=== PATIENT | female | born 1990 | race Hispanic/Latino ===

== ENCOUNTER 2018-10-17 21:24 | Emergency (ER) | payer MEDICAID ==
[2018-10-17 22:22] VITALS: O2SAT 97
--- NOTE | 2018-10-17 23:46 | ERPHSYRPT ---
- History of Present Illness Time Seen by Provider: 10/17/18 23:35 Source: patient Exam Limitations: no limitations Patient Subjective Stated Complaint: PT C/O 3 DAYS OF YELLOW VAGINAL DC, ITCHING , AND ODOR. ET MILD PELVIC CRAMPING. Triage Nursing Assessment: PINK/WARM/DRY, RESP EASY, A&OX4, STEADY GAIT, NO DISTRESS NOTED. Physician History: 28-year-old white female previously healthy arrives with complaint of vaginal discharge itching some lower abdominal cramping symptoms for 2-3 days. Past medical history is negative. Past surgical history tonsillectomy and adenoidectomy, D&C. Timing/Duration: day(s) (2-3 days) Severity: mild Associated Symptoms: abdominal pain (suprapubic cramping), No nausea, No vomiting, No heartburn, No diaphoresis, No cough, No chills, No chest pain, No fever, No headaches, No loss of appetite, No malaise, No rash, No syncope, No seizure, No weakness Allergies/Adverse Reactions: No Known Drug Allergies Allergy (Unverified 10/17/18 22:47) Home Medications: No Reportable Medications [No Reported Medications] 10/17/18 [History] Hx Tetanus, Diphtheria Vaccination/Date Given: Yes Hx Influenza Vaccination/Date Given: No Hx Pneumococcal Vaccination/Date Given: No Immunizations Up to Date: Yes - Review of Systems Constitutional: No Fever, No Chills Eyes: No Symptoms Ears, Nose, & Throat: No Symptoms Respiratory: No Cough, No Dyspnea Cardiac: No Chest Pain, No Edema, No Syncope Abdominal/Gastrointestinal: Abdominal Pain (suprapubic cramping), No Nausea, No Vomiting, No Diarrhea, No Constipation, No Hematemesis, No Hematochezia, No Melena, No Dysphagia, No Appetite Changes Genitourinary Symptoms: Dysuria, Vaginal Discharge, No Frequency, No Hematuria, No Hesitancy Musculoskeletal: No Symptoms Skin: No Rash Neurological: No Dizziness, No Focal Weakness, No Sensory Changes Psychological: No Symptoms Endocrine: No Symptoms All Other Systems: Reviewed and Negative - Past Medical History Pertinent Past Medical History: No - Past Surgical History Past Surgical History: Yes Female Surgical History: Dilation & Curettage - Social History Smoking Status: Current every day smoker Exposure to second hand smoke: Yes Drug Use: none Patient Lives Alone: No - Female History Hx Now: No - Nursing Vital Signs Nursing Vital Signs: Initial Vital Signs Temperature 98.7 F 10/17/18 22:17 Pulse Rate 76 10/17/18 22:17 Respiratory Rate 16 10/17/18 22:17 Blood Pressure 107/61 10/17/18 22:17 O2 Sat by Pulse Oximetry 97 10/17/18 22:17 Pain Scale Pain Intensity 3 - Physical Exam General Appearance: no apparent distress, alert Eye Exam: PERRL/EOMI, eyes nml inspection Ears, Nose, Throat Exam: normal ENT inspection, TMs normal, pharynx normal, moist mucous membranes Neck Exam: normal inspection, non-tender, supple, full range of motion Respiratory Exam: normal breath sounds, lungs clear, No respiratory distress Cardiovascular Exam: regular rate/rhythm, normal heart sounds, normal peripheral pulses Gastrointestinal/Abdomen Exam: soft, normal bowel sounds, No tenderness, No mass Back Exam: normal inspection, normal range of motion, No CVA tenderness, No vertebral tenderness Extremity Exam: normal inspection, normal range of motion, pelvis stable Neurologic Exam: alert, oriented x 3, cooperative, 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0-10.5) K/mm3 RBC (4.1-5.4) M/mm3 Hgb (12.0-16.0) gm/dl Hct (35-47) % MCV (78-100) fl MCH (26-32) pg MCHC (32-36) g/dl RDW (11.5-14.0) % Plt Count (150-450) K/mm3 MPV (6-9.5) fl Gran % (36.0-66.0) % Eos # (Auto) (0-0.5) Absolute Lymphs (auto) (1.0-4.6) Absolute Monos (auto) (0.0-1.3) Lymphocytes % (24.0-44.0) % Monocytes % (0.0-12.0) % Eosinophils % (0.00-5.0) % Basophils % (0.0-0.4) % Absolute Granulocytes (1.4-6.9) Basophils # (0-0.4) Sodium 139 (137-145) mmol/L Potassium 4.0 (3.5-5.1) mmol/L Chloride 104 (98-107) mmol/L Carbon Dioxide 27 (22-30) mmol/L Anion Gap 11.9 (5-15) MEQ/L BUN 17 (7-17) mg/dL Creatinine 0.65 (0.52-1.04) mg/dL Estimated GFR > 60.0 ML/MIN Glucose 84 (74-106) mg/dL Calcium 9.3 (8.4-10.2) mg/dL Serum , Qual NEGATIVE (Negative) Urine Color YELLOW (YELLOW) Urine Appearance SLIGHTLY CLOUDY (CLEAR) Urine pH 6.0 (5-6) Ur Specific [place] 1.017 (1.005-1.025) Urine Protein NEGATIVE (Negative) Urine Ketones NEGATIVE (NEGATIVE) Urine Blood NEGATIVE (0-5) Wallace/ul Urine Nitrite NEGATIVE (NEGATIVE) Urine Bilirubin NEGATIVE (NEGATIVE) Urine Urobilinogen NEGATIVE (0-1) mg/dL Ur Leukocyte Esterase NEGATIVE (NEGATIVE) Urine WBC (Auto) 0-2 (0-5) /HPF Urine RBC (Auto) NONE (0-2) /HPF U Epithel Cells (Auto) RARE (FEW) /HPF Urine Bacteria (Auto) NONE SEEN (NEGATIVE) /HPF Unidentified Crystals 2-5 (NEGATIVE) /HPF Amorphous Crystals MODERATE (NEGATIVE) /HPF Urine Mucus (Auto) SLIGHT (NEGATIVE) /HPF Urine Culture Reflexed NO (NO) Urine Glucose NEGATIVE (NEGATIVE) mg/dL 10/17/18 Range/Units 00:24 WBC 9.8 (4.0-10.5) K/mm3 RBC 4.37 (4.1-5.4) M/mm3 Hgb 13.2 (12.0-16.0) gm/dl Hct 39.4 (35-47) % MCV 90.2 (78-100) fl MCH 30.2 (26-32) pg MCHC 33.5 (32-36) g/dl RDW 12.2 (11.5-14.0) % Plt Count 225 (150-450) K/mm3 MPV 8.8 (6-9.5) fl Gran % 56.1 (36.0-66.0) % Eos # (Auto) 0.15 (0-0.5) Absolute Lymphs (auto) 3.46 (1.0-4.6) Absolute Monos (auto) 0.68 (0.0-1.3) Lymphocytes % 35.2 (24.0-44.0) % Monocytes % 6.9 (0.0-12.0) % Eosinophils % 1.5 (0.00-5.0) % Basophils % 0.3 (0.0-0.4) % Absolute Granulocytes 5.50 (1.4-6.9) Basophils # 0.03 (0-0.4) Sodium (137-145) mmol/L Potassium (3.5-5.1) mmol/L Chloride (98-107) mmol/L Carbon Dioxide (22-30) mmol/L Anion Gap (5-15) MEQ/L BUN (7-17) mg/dL Creatinine (0.52-1.04) mg/dL Estimated GFR ML/MIN Glucose (74-106) mg/dL Calcium (8.4-10.2) mg/dL Serum , Qual (Negative) Urine Color (YELLOW) Urine Appearance (CLEAR) Urine pH (5-6) Ur Specific [place] (1.005-1.025) Urine Protein (Negative) Urine Ketones (NEGATIVE) Urine Blood (0-5) Wallace/ul Urine Nitrite (NEGATIVE) Urine Bilirubin (NEGATIVE) Urine Urobilinogen (0-1) mg/dL Ur Leukocyte Esterase (NEGATIVE) Urine WBC (Auto) (0-5) /HPF Urine RBC (Auto) (0-2) /HPF U Epithel Cells (Auto) (FEW) /HPF Urine Bacteria (Auto) (NEGATIVE) /HPF Unidentified Crystals (NEGATIVE) /HPF Amorphous Crystals (NEGATIVE) /HPF Urine Mucus (Auto) (NEGATIVE) /HPF Urine Culture Reflexed (NO) Urine Glucose (NEGATIVE) mg/dL - Progress Progress: improved Progress Note: 10/18/18 01:48 Arrives with complaint of lower vaginal discharge also states she's had some abdominal cramping. Urinalysis is negative she is refuses pelvic examination. I have gone ahead and asked the lab to change her GC chlamydia to urine we'll discharge patient at this time and follow-up with either of these are positive. - Departure Departure Disposition: Home Clinical Impression: Vaginal discharge Condition: Fair Critical Care Time: No Referrals: DOCTOR,NO FAMILY [Primary Care Provider] - Additional Instructions: Return home. Follow-up with your family doctor. Return for acute distress or for severe symptoms.
[2018-10-18 00:27] LABS: BASOPHIL % 0.3 % (0.0-0.4); Basophil (Absolute #) 0.03 (0-0.4); Eosinophil % 1.5 % (0.00-5.0); Eosinophil (Absolute #) 0.15 (0-0.5); Granulocytes % 56.1 % (36.0-66.0); Hematocrit 39.4 % (35-47); Hemoglobin 13.2 gm/dl (12.0-16.0); Lymphocyte (Absolute #) 3.46 (1.0-4.6); Lymphocytes % 35.2 % (24.0-44.0); Mean Cell Volume 90.2 fl (78-100); Mean Corpuscular Hemoglobin 30.2 pg (26-32); Mean Corpuscular Hgb Concent. 33.5 g/dl (32-36); Mean Platelet Volume 8.8 fl (6-9.5); Monocyte (Absolute #) 0.68 (0.0-1.3); Monocytes % 6.9 % (0.0-12.0); Platelet Count 225 K/mm3 (150-450); Red Blood Count 4.37 M/mm3 (4.1-5.4); Red Cell Distribution Width 12.2 % (11.5-14.0); White Blood Count 9.8 K/mm3 (4.0-10.5)
[2018-10-18 00:39] LABS: ANION GAP 11.9 MEQ/L (5-15); BLOOD UREA NITROGEN 17 mg/dL (7-17); CHLORIDE 104 mmol/L (98-107); Calcium 9.3 mg/dL (8.4-10.2); Carbon Dioxide 27 mmol/L (22-30); Creatinine 1 0.65 mg/dL (0.52-1.04); Glucose 84 mg/dL (74-106); SODIUM 139 mmol/L (137-145)
[2018-10-18 01:31] LABS: Amourphous Crystal MODERATE /HPF (NEGATIVE); Appearance SLIGHTLY CLOUDY (CLEAR); Bilirubin NEGATIVE (NEGATIVE); Blood NEGATIVE Ery/ul (0-5); Epithelial Cells RARE /HPF (FEW); Glucose NEGATIVE (NEGATIVE); Ketones NEGATIVE (NEGATIVE); Leukocyte Esterase NEGATIVE (NEGATIVE); Mucus SLIGHT /HPF (NEGATIVE); Nitrite NEGATIVE (NEGATIVE); Protein,Urine Dip NEGATIVE (Negative); Specific Gravity 1.017 (1.005-1.025); Urobilinogen NEGATIVE mg/dL (0-1); WBC 0-2 /HPF (0-5)
[2018-10-18 01:33] LABS: Bacteria NONE SEEN /HPF (NEGATIVE)
[2018-10-18 02:01] VITALS: BP 104/53; PULSE 72
[2018-10-18 03:55] LABS: CHLAMYDIA URINE NEGATIVE (NEGATIVE); GC URINE NEGATIVE (NEGATIVE)
== END 2018-10-18 02:21 | disposition home or self-care (01) ==
LOC: ED 21:24
DX: N89.8 Other specified noninflammatory disorders of vagina (principal); R10.30 Lower abdominal pain, unspecified; L29.9 Pruritus, unspecified
CPT/HCPCS: 36415; 80048; 81001; 81025; 85025; 87491; 87591; 99283

== ENCOUNTER 2019-01-22 00:04 | Emergency (ER) | payer OTHER ==
[2019-01-22 00:31] VITALS: BP 115/72; PULSE 100; O2SAT 100
--- NOTE | 2019-01-22 00:42 | ERPHSYRPT ---
- History of Present Illness Historian: patient Exam Limitations: no limitations Patient Subjective Stated Complaint: pt is alert and oriented. pt is ambulatory with a steady gait. pt comes in with c/o bright red blood after attempting going to have a bm. pt states she is unable to have a BM. pt silvina hx of hemrrhoids. pt states that she dropped a full bottle of liquor on her left foot at work and that he big toe is now sore. Triage Nursing Assessment: see above Physician History: Pt is a 28 y/o female that presented to the ED, after having rectal bleed from straining in the BR. Pt stated, she had about 3 days with no BM, and she was trying to push in the BR, and she eventualy had some BM and saw blood in the BM. Pt also stated, she dropped a bottle on her foot, and she has some pain. Pt denies N/V. No abdominal cramp or pain. She is constipated still, and is uncomfortable. Timing/Duration: today Activities at Onset: none Quality: fullness Abdominal Pain Onset Location: generalized abdomen Pain Radiation: no radiation Severity of Pain-Max: none Severity of Pain-Current: none Modifying Factors: Improves With: nothing Associated Symptoms: denies symptoms Previous symptoms: no prior history Allergies/Adverse Reactions: No Known Drug Allergies Allergy (Unverified 10/17/18 22:47) Home Medications: No Reportable Medications [No Reported Medications] 10/17/18 [History] Hx Tetanus, Diphtheria Vaccination/Date Given: Yes Hx Influenza Vaccination/Date Given: No Hx Pneumococcal Vaccination/Date Given: No Immunizations Up to Date: Yes - Review of Systems Constitutional: No Fever, No Chills Eyes: No Symptoms Ears, Nose, & Throat: No Symptoms Respiratory: No Cough, No Dyspnea Cardiac: No Chest Pain, No Edema, No Syncope Abdominal/Gastrointestinal: Abdominal Pain, Hematochezia Genitourinary Symptoms: No Dysuria Musculoskeletal: Other (L foot pain from bottle that fell on it.) Neurological: No Dizziness, No Focal Weakness, No Sensory Changes - Past Medical History Pertinent Past Medical History: No - Past Surgical History Past Surgical History: Yes Female Surgical History: Dilation & Curettage - Social History Smoking Status: Current every day smoker How long have you smoked: 12 years Exposure to second hand smoke: Yes Drug Use: none Patient Lives Alone: No - Female History Hx Last Menstrual Period: December 13, 2018 Hx Now: No - Nursing Vital Signs Nursing Vital Signs: Initial Vital Signs Temperature 98.4 F 01/22/19 00:23 Pulse Rate 100 H 01/22/19 00:23 Respiratory Rate 18 01/22/19 00:23 Blood Pressure 115/72 01/22/19 00:23 O2 Sat by Pulse Oximetry 100 01/22/19 00:23 Pain Scale Pain Intensity 5 - Physical Exam General Appearance: no apparent distress, alert Eye Exam: PERRL/EOMI, eyes nml inspection Ears, Nose, Throat Exam: normal ENT inspection, pharynx normal, moist mucous membranes Neck Exam: normal inspection, non-tender, supple, full range of motion Respiratory Exam: normal breath sounds, lungs clear, No respiratory distress Cardiovascular Exam: regular rate/rhythm, normal heart sounds Gastrointestinal/Abdomen Exam: soft, tenderness (minimal), No mass Rectal Exam: deferred (blood in stool) Back Exam: normal inspection, normal range of motion, No CVA tenderness, No vertebral tenderness Extremity Exam: normal inspection, normal range of motion, pelvis stable Neurologic Exam: alert, oriented x 3, cooperative, normal mood/affect, nml cerebellar function, sensation nml, No motor deficits SpO2: 100 - Progress Progress: unchanged Progress Note: 01/22/19 00:44 Pt was seen and examined. She was advised to use Miralax or stool softner for her constipation, and see her PCP to get referral for colonoscopy. Pt was advised that she should increase fiber in her diet, to prevent hemorrhoids. Pt was also advised to keep her foot elevated and iced. She should use Tylenol for pain and not NSAIDs, to prevent more bleeding. Will see patient in: office Counseled pt/family regarding: need for follow-up - Departure Departure Disposition: Home Clinical Impression: Hematochezia, Foot pain, left Condition: Stable Critical Care Time: No Referrals: DOCTOR,NO FAMILY [Primary Care Provider] - Additional Instructions: F/U with PCp and referral for colonoscopy. Use Colace or Miralax for constipation. Elevate your left foot and ice it. Use Tylenol for pain, till rectal bleed resolves.
== END 2019-01-22 00:57 | disposition home or self-care (01) ==
LOC: ED 00:04
DX: K92.1 Melena (principal); M79.672 Pain in left foot; W22.8XXA Striking against or struck by other objects, initial encounter
CPT/HCPCS: 99283

== ENCOUNTER 2019-02-20 10:29 | Emergency (ER) | payer OTHER ==
--- NOTE | 2019-02-20 10:58 | ERPHSYRPT ---
- History of Present Illness Time Seen by Provider: 02/20/19 10:52 Source: patient Exam Limitations: no limitations Patient Subjective Stated Complaint: pt fell downstairs on friday and she fractured her foot, she was seen at [facility], she has not seen a ortho dr yet, and now has shooting pains in foot, Triage Nursing Assessment: pt arrived in , with cam boot to right foot, she has swelling and bruising to foot, strong pedal pulse Physician History: 29-year-old white female arrives with complaint of pain in her right foot. Patient states she fractured her foot 3 days ago. She states she was seen at [facility] she was given a Cam boot and she states she is given pain medication but she states she cannot take them because they make her nauseous. She states she is having pain shooting up her foot up into her leg. Past medical history is negative. Past surgical history D&C. . Method of Injury: fell (fell down stairs) Occurred: days ago (3 days ago) Quality: constant, aching Severity of Pain-Max: moderate Severity of Pain-Current: moderate Lower Extremities Pain: foot: right Modifying Factors: Improves With: nothing Associated Symptoms: other (shooting pains right foot paresthesia right foot) Allergies/Adverse Reactions: No Known Drug Allergies Allergy (Verified 02/20/19 10:45) Hx Tetanus, Diphtheria Vaccination/Date Given: No Hx Influenza Vaccination/Date Given: No Hx Pneumococcal Vaccination/Date Given: No Immunizations Up to Date: Yes - Review of Systems Constitutional: No Fever, No Chills Eyes: No Symptoms Ears, Nose, & Throat: No Symptoms Respiratory: No Cough, No Dyspnea Cardiac: No Chest Pain, No Edema, No Syncope Abdominal/Gastrointestinal: No Abdominal Pain, No Nausea, No Vomiting, No Diarrhea Genitourinary Symptoms: No Dysuria Musculoskeletal: Other (recent fracture right foot, shooting pains right foot) Skin: No Rash Neurological: No Dizziness, No Focal Weakness, No Sensory Changes Psychological: No Symptoms Endocrine: No Symptoms All Other Systems: Reviewed and Negative - Past Medical History Pertinent Past Medical History: Yes Other Medical History: fr right foot 2019 - Past Surgical History Past Surgical History: Yes Female Surgical History: Dilation & Curettage - Social History Smoking Status: Current every day smoker How long have you smoked: 12 years Exposure to second hand smoke: Yes Drug Use: none Patient Lives Alone: No - Female History Hx Last Menstrual Period: 2 weeks ago Hx Now: No - Nursing Vital Signs Nursing Vital Signs: Initial Vital Signs Temperature 97 F 02/20/19 10:34 Pulse Rate 49 L 02/20/19 10:34 Respiratory Rate 16 02/20/19 10:34 Blood Pressure 121/80 02/20/19 10:34 O2 Sat by Pulse Oximetry 96 02/20/19 10:34 Pain Scale Pain Intensity 8 - Physical Exam General Appearance: mild distress, alert Eyes, Ears, Nose, Throat Exam: moist mucous membranes Neck Exam: non-tender, supple Cardiovascular/Respiratory Exam: chest non-tender, normal breath sounds, regular rate/rhythm, no respiratory distress Gastrointestinal/Abdominal Exam: non-tender, guarding Back Exam: normal inspection, No vertebral tenderness Hips Exam: bilateral: non-tender, normal inspection, normal range of motion, no evidence of injury Legs Exam: bilateral leg: non-tender, normal inspection, normal range of motion , no evidence of injury Knees Exam: bilateral knee: non-tender, normal inspection, normal range of motion, no evidence of injury Ankle Exam: bilateral ankle: non-tender, normal inspection, normal range of motion, no evidence of injury Foot Exam: right foot: other (right foot with ecchymosis distally tenderness along the first metatarsal laterally, dorsal pedal posterior tibial pulses intact two over four good capillary refill all toes sensation intact to all toes ), left foot: non-tender, normal inspection, normal range of motion, no evidence of injury DTR - Lower Extremities Exam: ankle (R): 2+, ankle (L): 2+ Neuro/Tendon Exam: normal sensation, normal motor functions Mental Status Exam: alert, oriented x 3, cooperative Skin Exam: normal color, warm, dry, other (eecchymosis right distal foot along and proximal to right great toe) SpO2 Interpretation: normal (96%) SpO2: 96 Ordered Tests: Active Orders 24 hr Category Date Time Status FOOT (MINIMUM 3 VIEWS) Stat Exams 02/20/19 10:51 Taken - Progress Progress: improved Progress Note: 02/20/19 10:58 29-year-old white female arrives with complaint of pain in her right foot which she states is feeling worse she states she is having some numbness in her right foot she states she is having shooting pains from her foot shooting up her lower leg. She was treated recently at [facility] secondary to a foot fracture after she fell down some stairs. On physical examination patient has some bruising and tenderness with palpation along the right distal foot along the first metatarsal. She has decreased range of motion to the right toes secondary to pain she has full range of motion right ankle and knee. Patient has been using a cam boot. Patient does have good capillary refill to her toes sensation intact to her toes dorsal pedal posterior tibial pulses are intact. Will go ahead and x-ray the patient's right foot. Consider crutches elevation 02/20/19 11:03 Patient states that she cannot take this she said she cannot take her hydrocodone which was prescribed at [facility] on February 17, 2019 she states it makes her sick to her stomach. I have looked patient up on inspect patient had prescriptions for hydrocodone on December 17, 2018 5/325 for #16, she had received a prescription on December 21, 2018 her hydrocodone 5-325 #16, She had received a prescription on February 10, 2019 her hydrocodone 5/325 #16. As she had received a prescription as noted above for hydrocodone 5/325 on February 17, 2019 for #15 tablets. On x-ray the patient's foot she has a fracture of the medial side of the base of the right proximal phalanx first toe, Patient does have a Cam boot, she states she has crutches at home. She did inquire as to different pain medication. I did review the fact that she had received the above noted narcotics. She states that she has all those pills at home because she gets nauseous when she takes them. I will write for Zofran for the patient. She may alternatively take Tylenol or Advil. . Patient to followup with her orthopedist. - Departure Departure Disposition: Home Clinical Impression: Right foot pain, recent fracture right first phalanx (toe, nausea with pain medication Condition: Fair Critical Care Time: No Referrals: DOCTOR,NO FAMILY [Primary Care Provider] - Additional Instructions: Ice and elevate right foot 24-48 hours, Wear cam boot as prescribed by [facility]. Crutches weightbearing as tolerated. Leopold as prescribed by [facility]. Zofran as needed for nausea and vomiting. May alternatively take Tylenol every 4 hours and Motrin every 6 hours as needed for pain. Followup with your orthopedist. Or [facility] orthopedics. Return for acute distress or for severe symptoms. be sure that cam boot is not too tight.\ Prescriptions: Ondansetron ODT 4 MG [Zofran Odt 4 mg] 4 mg PO Q6H PRN PRN #10 tab.rapdis PRN Reason: nausea or vomiting
[2019-02-20 11:23] VITALS: BP 108/68; PULSE 60; O2SAT 97
--- NOTE | 2019-02-20 13:31 | XRAY ---
Indication: Fracture. Increasing pain. Comparison: Outside exam from [facility] dated February 17, 2019. 3 nonweightbearing views of the right foot again demonstrates minimally displaced corner fracture base of the 1st proximal phalanx medial aspect slightly more displaced. Stable tiny heel spur, talonavicular accessory ossicle, and posterior talus accessory ossicle. No new abnormalities.
== END 2019-02-20 11:23 | disposition home or self-care (01) ==
LOC: ED 10:29
DX: M79.671 Pain in right foot (principal); S92.401D Displaced unspecified fracture of right great toe, subsequent encounter for fracture with routine healing; T50.995A Adverse effect of other drugs, medicaments and biological substances, initial encounter
CPT/HCPCS: 73630; 99283